=== PATIENT | female | born 1980 | race Caucasian/White ===

== ENCOUNTER 2016-05-08 19:11 | Inpatient (IN) | payer OTHER ==
[~2016-05-08] VITALS: Ht 162.6 cm; Wt 66.3 kg
[2016-05-08 20:30] VITALS: BP 115/48
[2016-05-08 21:00] VITALS: BP 113/72
[2016-05-08] MEDS ORDERED: BENZOCAINE/MENTHOL LOZENGE. PO PRN (21:15)
[2016-05-08] MEDS ORDERED: TEMAZEPAM 15 MG CAPSULE PO PRN (21:15)
[2016-05-08 21:30] VITALS: BP 112/56
[2016-05-08 22:00] VITALS: BP 105/87
[2016-05-08] MEDS ORDERED: POTASSIUM CHLORIDE 40 MEQ in IV NORMAL SALINE 1000ML BAG 1,000 ML IV SCH (22:00)
[2016-05-08] MEDS: GUAIFENESIN ER 600 MG TABLET.ER PO SCH (22:00)
[2016-05-08] MEDS: ACETAMINOPHEN 325 MG TABLET. PO PRN (22:06)
[2016-05-08] MEDS: OXYCODONE IR 5 MG TABLET. PO PRN (22:08)
[2016-05-08] MEDS ORDERED: CEFTRIAXONE SODIUM 1 GM in IV NORMAL SALINE 50ML 50 ML IV SCH (22:30)
[2016-05-08 23:00] VITALS: BP 117/55
[2016-05-08] MEDS ORDERED: AZITHROMYCIN 500 MG in IV NORMAL SALINE 250ML 250 ML IV SCH (23:00)
[2016-05-08] MEDS: IPRATRPIUM/ALBUTEROL 0.5/2.5MG 3 ML NEBU. NEB SCH ×2 (23:45→23:47)
[2016-05-09] VITALS (19 sets, daily range): BP systolic 96–121; BP diastolic 39–80
[2016-05-09] MEDS: ACETAMINOPHEN 325 MG TABLET. PO PRN ×2 (04:31→20:54)
[2016-05-09] MEDS ORDERED: IBUP-1027 PO (05:00)
[2016-05-09] MEDS: GUAIFENESIN ER 600 MG TABLET.ER PO SCH ×2 (05:54→20:54)
[2016-05-09] MEDS: KETOROLAC 15 MG/ML VIAL. IV PRN ×3 (05:55→16:13)
[2016-05-09 06:30] LABS: BASO % 0 % (0-3); EOS % 0 % (0-3); HEMOGLOBIN 11.4 g/dL (12.0-15.5); LYMPH # 1.2 x10^3/uL (1.0-4.8); LYMPH % 15 % (24-48); MEAN CORPUSCULAR HEMOGLOBIN 31 pg (25-35); MEAN CORPUSCULAR HGB CONC 35 g/dL (31-37); MEAN CORPUSCULAR VOLUME 89 fL (79-100); MONO % 9 % (0-9); NEUT % 76 % (31-73); PLATELET COUNT 174 x10^3/uL (140-400); RED BLOOD COUNT 3.69 x10^6/uL (3.50-5.40); RED CELL DISTRIBUTION WIDTH 13.1 % (11.5-14.5); WHITE BLOOD COUNT 8.1 x10^3/uL (4.0-11.0)
[2016-05-09 06:37] LABS: INR 1.3 (0.8-1.1); PROTHROMBIN TIME PATIENT 15.4 SEC (11.7-14.0)
[2016-05-09 06:38] LABS: CALCIUM 8.1 mg/dL (8.5-10.1); CREATININE 0.7 mg/dL (0.6-1.0); GFR 94.7
--- NOTE | 2016-05-09 07:02 | PDOC ---
Infectious Disease Note Vital Sign Vital Signs Vital Signs Date Time Temp Pulse Resp B/P Pulse Ox O2 Delivery O2 Flow Rate FiO2 05/09/16 04:00 100.3 75 24 97/53 97 100.3 05/09/16 04:00 Room Air Labs Lab Laboratory Tests Test 05/09/16 05:40 White Blood Count 8.1x10^3/uL (4.0-11.0) Red Blood Count 3.69x10^6/uL (3.50-5.40) Hemoglobin 11.4g/dL (12.0-15.5) Hematocrit 33.0% (36.0-47.0) Mean Corpuscular Volume 89fL (79-100) Mean Corpuscular Hemoglobin 31pg (25-35) Mean Corpuscular Hemoglobin Concent 35g/dL (31-37) Red Cell Distribution Width 13.1% (11.5-14.5) Platelet Count 174x10^3/uL (140-400) Neutrophils (%) (Auto) 76% (31-73) Lymphocytes (%) (Auto) 15% (24-48) Monocytes (%) (Auto) 9% (0-9) Eosinophils (%) (Auto) 0% (0-3) Basophils (%) (Auto) 0% (0-3) Neutrophils # (Auto) 6.1x10^3uL (1.8-7.7) Lymphocytes # (Auto) 1.2x10^3/uL (1.0-4.8) Monocytes # (Auto) 0.7x10^3/uL (0.0-1.1) Eosinophils # (Auto) 0.0x10^3/uL (0.0-0.7) Basophils # (Auto) 0.0x10^3/uL (0.0-0.2) Prothrombin Time 15.4SEC (11.7-14.0) Prothromb Time International Ratio 1.3 (0.8-1.1) Activated Partial Thromboplast Time 39SEC (24-38) Sodium Level 136mmol/L (136-145) Potassium Level 4.0mmol/L (3.5-5.1) Chloride Level 103mmol/L (98-107) Carbon Dioxide Level 23mmol/L (21-32) Anion Gap 10 (6-14) Blood Urea Nitrogen 4mg/dL (7-20) Creatinine 0.7mg/dL (0.6-1.0) Estimated GFR (Cockcroft-Gault) 94.7 Glucose Level 87mg/dL (70-99) Calcium Level 8.1mg/dL (8.5-10.1) Objective Assessment Pneumonia with parapneumonic effusion Fever CAP Plan Plan of Care Rocephin and azithro thoracentesis supportive care check cultures CARLOS NASH MD May 09, 2016 07:02
--- NOTE | 2016-05-09 07:57 | RAD ---
EXAM: Chest, single view. HISTORY: Pneumonia. COMPARISON: None. FINDINGS: A frontal view of the chest is obtained. There is a small to moderate right pleural effusion with lower lobe infiltrate. There is no pneumothorax. The heart is normal in size. There is thoracolumbar fusion dislocation. IMPRESSION: Small to moderate right pleural effusion with lower lobe atelectasis.
[2016-05-09] MEDS: IPRATRPIUM/ALBUTEROL 0.5/2.5MG 3 ML NEBU. NEB SCH ×3 (09:42→20:31)
[2016-05-09] MEDS ORDERED: INFLUENZA VAX SCREEN BY RX. MC PRN (10:15)
[2016-05-09] MEDS ORDERED: FLU VACC QUAD 2016-17 (36MOS+)/PF 0.5 ML SYRINGE. VAX IM ONE (11:00)
--- NOTE | 2016-05-09 11:08 | PDOC ---
Provider Note Provider Note dictated SILVIA DOBBINS MD May 09, 2016 11:08
--- NOTE | 2016-05-09 11:38 | RAD ---
EXAM: Abdomen and pelvis CT without intravenous contrast. HISTORY: Empyema. TECHNIQUE: Computed tomographic images of the chest were obtained without contrast. Multiplanar reformatting was performed. COMPARISON: None. FINDINGS: There is consolidated infiltrate within the right lower lobe containing air bronchograms. There is a small right parapneumonic effusion. There is a small left pleural effusion with posterior dependent and basilar atelectasis. There is no pneumothorax. The heart is normal in size. There are prominent right hilar lymph nodes, likely reactive in etiology. The upper abdomen is unremarkable. There is thoracolumbar fusion instrumentation. IMPRESSION: 1. Consolidated right lower lobe pneumonia with small parapneumonic effusion. Follow-up to confirm resolution and exclude an underlying obstructing lesion. 2. Small left pleural effusion with posterior dependent and basilar atelectasis. PQRS Compliance Statement: One or more of the following individualized dose reduction techniques were utilized for this examination: 1. Automated exposure control 2. Adjustment of the mA and/or kV according to patient size 3. Use of iterative reconstruction technique
[2016-05-09] MEDS: IV NORMAL SALINE 1000ML BAG 1,000 ML IV SCH ×3 (12:54→20:20)
[2016-05-09] MEDS ORDERED: PIP/TAZO PER PHARMACY MC PRN (13:15)
[2016-05-09] MEDS ORDERED: ALBUTEROL SULFATE 2.5 MG/3 ML NEBU. ONE (13:26)
[2016-05-09] MEDS ORDERED: PROPOFOL 40 ML IV ONE (13:50)
[2016-05-09] MEDS: PIPERACILLIN/TAZOBACTAM 4.5 GM in IV NORMAL SALINE 100ML 100 ML IV SCH ×2 (14:57→17:51)
--- NOTE | 2016-05-09 14:59 | HP ---
ADMIT DATE: 05/08/2016 HISTORY OF PRESENT ILLNESS: The patient is a 35-year-old female patient who was admitted to [facility] with complaint of cough with scanty whitish sputum and right-sided chest pain, worse with coughing and taking a deep breath. She was extensively evaluated in the Emergency Room. She has no leukocytosis; however, she was hypokalemic and her influenza A and B were negative. Rapid group A streptococcus test was negative. Her chest x-ray showed that she has right lower lobe pneumonia and apparently had abdominal pain, mostly in the right upper quadrant with nausea, vomiting and therefore, she had a CT scan of the abdomen and pelvis and was found to have right lower lobe consolidation, likely pneumonia and was admitted and started on IV antibiotic in the form of ceftriaxone and Zithromax for community-acquired pneumonia. Unfortunately, she continued to spike temperature despite treatment and yesterday I did a chest x-ray, which showed that she large right-sided pleural effusion, which could be a parapneumonic effusion versus empyema and because she continued to have persistent fever, I transferred her to the ICU with plan to consult the piercing mill operator, Infectious Disease and possibly interventional radiologist to drain this fluid. PAST MEDICAL HISTORY: Unremarkable except for scoliosis and acute cholecystitis. PAST SURGICAL HISTORY: Significant for cholecystectomy and had recent Patel Luis for scoliosis. ALLERGIES: She is allergic to codeine, and tramadol. MEDICATIONS: She was transferred from [facility] to continue on following medications: Normal saline at 150 mL per hour, Tylenol 650 mg every 4 hours. She is on Zithromax 500 mg IV daily and ceftriaxone 1 gram IV daily. She is on Mucinex 600 mg p.o. b.i.d., ipratropium bromide/albuterol sulfate 3 mL four times a day. She is also on Toradol 15 mg IV every 6 hours, oxycodone 5 mg every 4 hours and temazepam 15 mg at bedtime. FAMILY HISTORY: She has one brother who is younger and one sister older. Her father committed suicide at the age of 63. The mother is alive at age of 65 and healthy. SOCIAL HISTORY: She is , has 1 son and 1 daughter. She never smoked. Drinks alcohol occasionally. 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 REVIEW OF SYSTEMS: As per history of present illness. PHYSICAL EXAMINATION: GENERAL: On arrival to the ICU, in [facility], the patient was slightly tachypneic, pale, but no jaundice, cyanosis or thyromegaly. No jugular venous distention. No limb edema. VITAL SIGNS: Her heart rate was 71, blood pressure was 115/48, temperature was 99.4, respiratory rate was 25, and oxygen saturation was 99% on room air. HEAD, EYES, NOSE AND THROAT: Showed normocephalic, atraumatic. NECK: Supple. HEART: Showed normal first and second heart sounds with no gallop, rub or murmur. CHEST: Shows central trachea, equal, good chest expansion, air entry in the left side. The right has decreased chest expansion, decreased air entry with dull percussion noted and absent breath sounds in the right side posteriorly. ABDOMEN: Slightly distended, soft, nontender. No guarding or rigidity. No organomegaly. Her hernial orifice intact. Bowel sounds normal. NEUROLOGIC: She was awake, alert, responding appropriately. Cranial nerves intact. EXTREMITIES: She moves extremities without difficulty. She ambulates without assistance or assistive devices. LABORATORY DATA: Showed white cell count of 8000, hemoglobin 11.4, hematocrit 33, MCV 89 and platelet count of ,000 with normal manual differential. Her chemistry showed serum sodium of 136, potassium 4, chloride 103, bicarbonate 23, anion gap of 10, BUN 4, creatinine 0.7, estimated GFR was 95 mL per minute. Her glucose was 87 and calcium was 8.1. Her prothrombin time was 15.4, INR 1.3 and aPTT was 39. PLAN: Consult the piercing mill operator, infectious disease specialist, Dr. Mccollum to see this parapneumonic versus empyema fluid needs to be drained. Meanwhile, we will continue with the same antibiotics unless the Infectious Disease decides otherwise. AUGUST TONY MD DR: YOVANI/mary JOB#: [id number] / [id number]
--- NOTE | 2016-05-09 15:47 | PDOC4 ---
PROCEDURE Procedure Bronch dictated SILVIA DOBBINS MD May 09, 2016 15:47
--- NOTE | 2016-05-09 15:50 | CONS ---
DATE OF CONSULTATION: 05/09/2016 REQUESTING PHYSICIAN: Dr. Kulkarni. REASON FOR CONSULTATION: Pneumonia with effusion, possible empyema. HISTORY OF PRESENT ILLNESS: This is a 35-year-old female with history of gallbladder surgery in December, who presented to [place] with cough, fever, some shortness of breath. The patient was found to have right lower lobe pneumonia and subsequently found to have effusion, hence her transfer. The patient continues to run fever, she says. Denies any nausea, vomiting, diarrhea. Denies any abdominal pain. Does have some chest pain, denies any urinary symptoms or bowel symptoms. PAST MEDICAL HISTORY: Positive for cholecystectomy in December, otherwise unremarkable. SOCIAL HISTORY: Negative for smoking, occasional alcohol use, no drug use. ALLERGIES: No known drug allergies. No known antibiotic allergies. CURRENT MEDICATIONS: The patient is on Rocephin and azithromycin. REVIEW OF SYSTEMS: As per HPI, all other systems reviewed are negative. PHYSICAL EXAMINATION: GENERAL: Alert, oriented female, not in any distress. VITAL SIGNS: Stable. T-max 100.3. The patient had 102 fever at [place]. Pulse 75, respirations 24, blood pressure 97/53. HEENT: Both pupils are round and reacting. No conjunctival lesion, no lesion in the mouth. NECK: Supple, no JVP, no lymphadenopathy. LUNGS: Decreased breath sounds on the right side. HEART: S1, S2 regular. No gallop, murmur. ABDOMEN: Soft, nontender, no organomegaly. EXTREMITIES: No edema or cyanosis. SKIN: Unremarkable. NEUROLOGIC: The patient is neurologically intact. LABORATORY DATA: White count is normal. BUN and creatinine are normal. Strep pneumo antigen there at [place] was negative. Chest x-ray personally reviewed, right-sided consolidation with effusion. IMPRESSION: 1. Community-acquired pneumonia with right parapneumonic effusion, rule out empyema. 2. Community-acquired pneumonia. 3. Fever. RECOMMENDATIONS: Would continue with Rocephin and azithromycin. Thoracentesis has been planned for today. Supportive care. We will check cultures and adjust. Thank you very much, Dr. Kulkarni for giving me the opportunity to participate in this patient's care. CARLOS NASH MD DR: HOLLY/mary JOB#: [id number] / [id number]
[2016-05-09] MEDS: OXYCODONE IR 5 MG TABLET. PO PRN (20:54)
--- NOTE | 2016-05-09 23:54 | CONS ---
DATE OF CONSULTATION: ATTENDING PHYSICIAN: Dr. Kulkarni. REASON FOR CONSULTATION: Suspected empyema. HISTORY OF PRESENT ILLNESS: The patient is a 35-year-old who has no significant history of tobacco use. She presented to [facility] with fever. This was started on May 05. The patient was treated for pneumonia as her initial chest x-ray showed consolidation in the right lower lobe. She continues to have fever. She then underwent CT of the abdomen and pelvis which was performed at [facility] and that was reviewed by me on 05/06/2016. There was a mass-like consolidation in the right lower lobe closer to the pleura. There was no significant pleural effusion. The patient's fevers did not improve. As a result, another chest x-ray was performed, which was reviewed by me and it shows increased volume loss in the right lower lobe consistent with suspected parapneumonic effusion versus early empyema. She has been transferred to our facility in the ICU for further evaluation. She does have some shortness of breath. She has some pleuritic chest pain on the right side. She does have a mild cough. The patient has no history of immunocompromised status. She is not on chronic steroids. Infectious disease has also been consulted. She is currently on antibiotics, Rocephin and Zithromax. PAST MEDICAL HISTORY: Significant for history of scoliosis. She has history of surgery and hardware in her spine. History of cholecystectomy in December. History of CT chest in November where she has small right lower lobe pleural effusion. PAST SURGICAL HISTORY: Cholecystectomy in December and history of surgery for scoliosis. REVIEW OF SYSTEMS: A 12-point system was obtained. Pertinent positives discussed in my history of present illness, otherwise noncontributory. All systems that were negative were reviewed as well. ALLERGIES: CODEINE, TRAMADOL. MEDICATIONS: Reviewed. PHYSICAL EXAMINATION: GENERAL: She is awake, in no obvious respiratory distress. VITAL SIGNS: Her T-max of 99.1, today was 100.3 earlier in a.m. Blood pressure is stable. Pulse ox 98% on room air. NECK: Supple. LUNGS: Diminished breath sounds in right base. CARDIOVASCULAR: Regular rate and rhythm. ABDOMEN: Soft, nontender. EXTREMITIES: No pitting edema. LABORATORY DATA: Reviewed. White cell count 8.1, hemoglobin 11.4, and platelets are 174. BUN 4 and creatinine 0.7. IMPRESSION: 1. Community acquired right lower lobe pneumonia, now with parapneumonic effusion. Cannot exclude early empyema. She has persistent fevers and infectious disease has been consulted. 2. Abnormal chest x-ray and CT of the abdomen. Initially, consolidation was seen on CT abdomen on 06 of May, now on a plain chest x-ray. She has more volume loss suggesting that the pleural effusion has developed. We will order another CT chest to better assess for loculated pleural effusion and need for thoracentesis and chest tube. 3. No significant history of tobacco use. RECOMMENDATIONS: 1. Discussed with the patient and the . We will obtain CT of the chest without contrast. 2. Once there is a better assessment of loculated effusion, we will proceed with thoracentesis or chest tube with Pleur-evac. 3. We will review fluid for analysis. 4. Antibiotics per infectious disease. 5. Supportive care. 6. Pain control. 7. DuoNeb p.r.n. 8. Discussed with Dr. Kulkarni. cct 37 min SILVIA DOBBINS MD DR: NOEMÍ/mary JOB#: [id number] / [id number] KYRIE
[2016-05-10] MEDS: PIPERACILLIN/TAZOBACTAM 4.5 GM in IV NORMAL SALINE 100ML 100 ML IV SCH ×5 (00:02→23:37)
[2016-05-10 03:00] VITALS: BP 105/58
[2016-05-10] MEDS: IV NORMAL SALINE 1000ML BAG 1,000 ML IV SCH ×2 (03:00→09:40)
[2016-05-10] MEDS: KETOROLAC 15 MG/ML VIAL. IV PRN (04:18)
[2016-05-10 05:16] LABS: BASO % 0 % (0-3); EOS % 1 % (0-3); HEMATOCRIT 31.2 % (36.0-47.0); HEMOGLOBIN 10.5 g/dL (12.0-15.5); LYMPH # 1.1 x10^3/uL (1.0-4.8); LYMPH % 20 % (24-48); MEAN CORPUSCULAR HEMOGLOBIN 30 pg (25-35); MEAN CORPUSCULAR HGB CONC 34 g/dL (31-37); MEAN CORPUSCULAR VOLUME 91 fL (79-100); MONO % 10 % (0-9); NEUT % 68 % (31-73); PLATELET COUNT 168 x10^3/uL (140-400); RED BLOOD COUNT 3.44 x10^6/uL (3.50-5.40); WHITE BLOOD COUNT 5.6 x10^3/uL (4.0-11.0)
[2016-05-10 05:47] LABS: ALBUMIN 2.2 g/dL (3.4-5.0); ALBUMIN/GLOBULIN RATIO 0.6 (1.0-1.7); CALCIUM 7.8 mg/dL (8.5-10.1); CREATININE 0.7 mg/dL (0.6-1.0); GFR 94.7; POTASSIUM 3.5 mmol/L (3.5-5.1); TOTAL BILIRUBIN 0.3 mg/dL (0.2-1.0); TOTAL PROTEIN 5.9 g/dL (6.4-8.2)
[2016-05-10 07:00] VITALS: BP 107/60
[2016-05-10] MEDS: IPRATRPIUM/ALBUTEROL 0.5/2.5MG 3 ML NEBU. NEB SCH ×4 (07:56→19:42)
[2016-05-10] MEDS: GUAIFENESIN ER 600 MG TABLET.ER PO SCH ×2 (08:28→20:34)
--- NOTE | 2016-05-10 10:18 | PDOC ---
Infectious Disease Note Subjective Subjective feeling little better, bronch done ROS ROS GEN: Denies fevers, chills, sweats HEENT: Denies blurred vision, sore throat CV: Denies chest pain RESP: Denies shortness of air, cough GI: Denies n/v/d NEURO: Denies confusion, dizziness MSK: Denies weakness, joint pain/swelling Vital Sign Vital Signs Vital Signs Date Time Temp Pulse Resp B/P Pulse Ox O2 Delivery O2 Flow Rate FiO2 05/10/16 07:58 93 Room Air 05/10/16 07:00 98.4 56 20 107/60 98.4 05/09/16 21:54 5.0 Physical Exam PHYSICAL EXAM GENERAL: NAD, Alert HEENT: PERRL, OC/OP NECK: Supple, no JVD, no LN LUNGS: Clear HEART: S1S2, no gallop, no murmur ABD: Soft, NT, no organomegaly, no rebound EXT: No edema, no cyanosis PARENTING SKILLS INSTRUCTOR: Alert, oriented x 3, no focal neurologic deficit SKIN: No rash IV: ok Labs Lab Laboratory Tests Test 05/10/16 04:45 White Blood Count 5.6x10^3/uL (4.0-11.0) Red Blood Count 3.44x10^6/uL (3.50-5.40) Hemoglobin 10.5g/dL (12.0-15.5) Hematocrit 31.2% (36.0-47.0) Mean Corpuscular Volume 91fL (79-100) Mean Corpuscular Hemoglobin 30pg (25-35) Mean Corpuscular Hemoglobin Concent 34g/dL (31-37) Red Cell Distribution Width 13.0% (11.5-14.5) Platelet Count 168x10^3/uL (140-400) Neutrophils (%) (Auto) 68% (31-73) Lymphocytes (%) (Auto) 20% (24-48) Monocytes (%) (Auto) 10% (0-9) Eosinophils (%) (Auto) 1% (0-3) Basophils (%) (Auto) 0% (0-3) Neutrophils # (Auto) 3.8x10^3uL (1.8-7.7) Lymphocytes # (Auto) 1.1x10^3/uL (1.0-4.8) Monocytes # (Auto) 0.6x10^3/uL (0.0-1.1) Eosinophils # (Auto) 0.0x10^3/uL (0.0-0.7) Basophils # (Auto) 0.0x10^3/uL (0.0-0.2) Sodium Level 137mmol/L (136-145) Potassium Level 3.5mmol/L (3.5-5.1) Chloride Level 104mmol/L (98-107) Carbon Dioxide Level 24mmol/L (21-32) Anion Gap 9 (6-14) Blood Urea Nitrogen 3mg/dL (7-20) Creatinine 0.7mg/dL (0.6-1.0) Estimated GFR (Cockcroft-Gault) 94.7 BUN/Creatinine Ratio 4 (6-20) Glucose Level 97mg/dL (70-99) Calcium Level 7.8mg/dL (8.5-10.1) Total Bilirubin 0.3mg/dL (0.2-1.0) Aspartate Amino Transf (AST/SGOT) 17U/L (15-37) Alanine Aminotransferase (ALT/SGPT) 26U/L (14-59) Alkaline Phosphatase 34U/L (46-116) Total Protein 5.9g/dL (6.4-8.2) Albumin 2.2g/dL (3.4-5.0) Albumin/Globulin Ratio 0.6 (1.0-1.7) Objective Assessment Pneumonia Fever CAP Plan Plan of Care zosyn and zyvox supportive care check cultures CARLOS NASH MD May 10, 2016 10:18
[2016-05-10] MEDS ORDERED: ONDANSETRON PF 4 MG/2 ML VIAL. IV PRN (11:15)
[2016-05-10 11:38] VITALS: BP 101/61
[2016-05-10] MEDS: POTASSIUM CHLORIDE 20 MEQ TABLET.ER. PO SCH ×2 (11:53→17:00)
--- NOTE | 2016-05-10 14:26 | PDOC ---
PULMONARY PROGRESS NOTES Subjective FEELS BETTER Vitals Vital Signs Date Time Temp Pulse Resp B/P Pulse Ox O2 Delivery O2 Flow Rate FiO2 05/10/16 12:10 Room Air 05/10/16 11:38 98.1 70 18 101/61 92 98.1 05/09/16 21:54 5.0 General: Alert, No acute distress Lungs: Other (decrease bs right base) Cardiovascular: S1 Abdomen: Soft Neuro Exam: Alert Extremities: No Edema Skin: Warm Labs Laboratory Tests Test 05/08/16 21:30 05/09/16 05:40 05/10/16 04:45 Nasal Screen MRSA (PCR) Negative (Negative) White Blood Count 8.1x10^3/uL (4.0-11.0) 5.6x10^3/uL (4.0-11.0) Red Blood Count 3.69x10^6/uL (3.50-5.40) 3.44x10^6/uL (3.50-5.40) Hemoglobin 11.4g/dL (12.0-15.5) 10.5g/dL (12.0-15.5) Hematocrit 33.0% (36.0-47.0) 31.2% (36.0-47.0) Mean Corpuscular Volume 89fL (79-100) 91fL (79-100) Mean Corpuscular Hemoglobin 31pg (25-35) 30pg (25-35) Mean Corpuscular Hemoglobin Concent 35g/dL (31-37) 34g/dL (31-37) Red Cell Distribution Width 13.1% (11.5-14.5) 13.0% (11.5-14.5) Platelet Count 174x10^3/uL (140-400) 168x10^3/uL (140-400) Neutrophils (%) (Auto) 76% (31-73) 68% (31-73) Lymphocytes (%) (Auto) 15% (24-48) 20% (24-48) Monocytes (%) (Auto) 9% (0-9) 10% (0-9) Eosinophils (%) (Auto) 0% (0-3) 1% (0-3) Basophils (%) (Auto) 0% (0-3) 0% (0-3) Neutrophils # (Auto) 6.1x10^3uL (1.8-7.7) 3.8x10^3uL (1.8-7.7) Lymphocytes # (Auto) 1.2x10^3/uL (1.0-4.8) 1.1x10^3/uL (1.0-4.8) Monocytes # (Auto) 0.7x10^3/uL (0.0-1.1) 0.6x10^3/uL (0.0-1.1) Eosinophils # (Auto) 0.0x10^3/uL (0.0-0.7) 0.0x10^3/uL (0.0-0.7) Basophils # (Auto) 0.0x10^3/uL (0.0-0.2) 0.0x10^3/uL (0.0-0.2) Prothrombin Time 15.4SEC (11.7-14.0) Prothromb Time International Ratio 1.3 (0.8-1.1) Activated Partial Thromboplast Time 39SEC (24-38) Sodium Level 136mmol/L (136-145) 137mmol/L (136-145) Potassium Level 4.0mmol/L (3.5-5.1) 3.5mmol/L (3.5-5.1) Chloride Level 103mmol/L (98-107) 104mmol/L (98-107) Carbon Dioxide Level 23mmol/L (21-32) 24mmol/L (21-32) Anion Gap 10 (6-14) 9 (6-14) Blood Urea Nitrogen 4mg/dL (7-20) 3mg/dL (7-20) Creatinine 0.7mg/dL (0.6-1.0) 0.7mg/dL (0.6-1.0) Estimated GFR (Cockcroft-Gault) 94.7 94.7 Glucose Level 87mg/dL (70-99) 97mg/dL (70-99) Calcium Level 8.1mg/dL (8.5-10.1) 7.8mg/dL (8.5-10.1) BUN/Creatinine Ratio 4 (6-20) Total Bilirubin 0.3mg/dL (0.2-1.0) Aspartate Amino Transf (AST/SGOT) 17U/L (15-37) Alanine Aminotransferase (ALT/SGPT) 26U/L (14-59) Alkaline Phosphatase 34U/L (46-116) Total Protein 5.9g/dL (6.4-8.2) Albumin 2.2g/dL (3.4-5.0) Albumin/Globulin Ratio 0.6 (1.0-1.7) Laboratory Tests Test 05/10/16 04:45 White Blood Count 5.6x10^3/uL (4.0-11.0) Red Blood Count 3.44x10^6/uL (3.50-5.40) Hemoglobin 10.5g/dL (12.0-15.5) Hematocrit 31.2% (36.0-47.0) Mean Corpuscular Volume 91fL (79-100) Mean Corpuscular Hemoglobin 30pg (25-35) Mean Corpuscular Hemoglobin Concent 34g/dL (31-37) Red Cell Distribution Width 13.0% (11.5-14.5) Platelet Count 168x10^3/uL (140-400) Neutrophils (%) (Auto) 68% (31-73) Lymphocytes (%) (Auto) 20% (24-48) Monocytes (%) (Auto) 10% (0-9) Eosinophils (%) (Auto) 1% (0-3) Basophils (%) (Auto) 0% (0-3) Neutrophils # (Auto) 3.8x10^3uL (1.8-7.7) Lymphocytes # (Auto) 1.1x10^3/uL (1.0-4.8) Monocytes # (Auto) 0.6x10^3/uL (0.0-1.1) Eosinophils # (Auto) 0.0x10^3/uL (0.0-0.7) Basophils # (Auto) 0.0x10^3/uL (0.0-0.2) Sodium Level 137mmol/L (136-145) Potassium Level 3.5mmol/L (3.5-5.1) Chloride Level 104mmol/L (98-107) Carbon Dioxide Level 24mmol/L (21-32) Anion Gap 9 (6-14) Blood Urea Nitrogen 3mg/dL (7-20) Creatinine 0.7mg/dL (0.6-1.0) Estimated GFR (Cockcroft-Gault) 94.7 BUN/Creatinine Ratio 4 (6-20) Glucose Level 97mg/dL (70-99) Calcium Level 7.8mg/dL (8.5-10.1) Total Bilirubin 0.3mg/dL (0.2-1.0) Aspartate Amino Transf (AST/SGOT) 17U/L (15-37) Alanine Aminotransferase (ALT/SGPT) 26U/L (14-59) Alkaline Phosphatase 34U/L (46-116) Total Protein 5.9g/dL (6.4-8.2) Albumin 2.2g/dL (3.4-5.0) Albumin/Globulin Ratio 0.6 (1.0-1.7) Medications Active Scripts Medications Dose Route/Sig Days Date Category Ibuprofen 400 Mg Tablet 400 Mg PO PRN Q6HRS PRN 05/09/16 Reported Impression . 1. Community acquired right lower lobe pneumonia, 2. No significant empyema on ct chest 2. Abnormal chest x-ray and CT of the abdomen. Initially, consolidation was seen on CT abdomen on 06 of May, ct chest 05/09 with large consolidation , very tiny pleural effusion. No need for thoracentesis and chest tube. 3. No significant history of tobacco use. 4. S/P Bronch 05/09 Plan . 1. BS antibiotic 2. f/u Bronch cultures 3. monitor fever 4. Antibiotics per infectious disease. 5. Supportive care. 6. Pain control. 7. DuoNeb p.r.n. 8. Discussed with Dr. Kulkarni. SILVIA DOBBINS MD May 10, 2016 14:25
[2016-05-10 15:15] VITALS: BP 97/56
[2016-05-10] MEDS: ACETAMINOPHEN 325 MG TABLET. PO PRN (17:10)
--- NOTE | 2016-05-10 17:30 | PATHOLOGY ---
CYTOPATHOLOGY REPORT CLINICAL HISTORY: Pneumonia. SPECIMEN(S) RECEIVED: A.Bronchoalveolar lavage, RLL #1 B.Bronchoalveolar lavage, RLL #2 FINAL DIAGNOSIS: A. Right lower lobe, bronchoalveolar lavage #1, ThinPrep: - No malignant cells identified. - Focally reactive bronchial epithelial cells and few pulmonary macrophages are identified within a background of acute and chronic inflammatory cells. B. Right lower lobe bronchoalveolar lavage #2, ThinPrep: - No malignant cells identified. - Focally reactive bronchial epithelial cells and few pulmonary macrophages are identified within a background of acute and few chronic inflammatory cells. (JPM:csd; d/t: 05/10/2016) PATHOLOGIST: Wili Cross M.D. REPORT ELECTRONICALLY SIGNED BY: Wili Cross M.D. DATE/TIME: 05/10/2016 16:39 GROSS PATHOLOGY: A. Bronchoalveolar lavage, RLL #1: The specimen is submitted unfixed, labeled "Ila Nicole". Received by the Cytology Department is five mL of cloudy white fluid. One ThinPrep slide was prepared. B. Bronchoalveolar lavage, RLL #2: The specimen is submitted unfixed, labeled "Ila Nicole". Received by the Cytology Department is five mL of cloudy pink fluid. One ThinPrep slide was prepared. (clt 05.09.2016) SLATE SPLITTER(S): CHANCE Patel([facility]) INITIAL CPT CODE(S): A; 80562 B; 38015 Professional services [place] [address] Technical services performed by [employer] at [address] [place] [address], [facility] [address], [place] [address]. PATIENT: ILA NICOLE /AGE: 812/18/1980 (Age: 35) SEX: F PATIENT #: [id number] ALT CASE #: SPECIMEN COLLECTION DATE: 05/09/2016 SPECIMEN RECEIVED DATE: 05/09/[address] [facility], [address] [place] [address] PHONE: [phone] DIRECTOR: Angus Gilliam M.D. * * * END OF REPORT * * *
[2016-05-10 19:00] VITALS: BP 94/59
[2016-05-10 23:00] VITALS: BP 97/67
--- NOTE | 2016-05-11 02:52 | PN ---
DATE: 05/10/2016 SUBJECTIVE: The patient is resting, slightly propped up in bed, in no apparent distress. She is definitely feeling better according to her, though she did have some nausea this morning. She has had a CT scan of the chest without contrast and it showed that she has consolidated right lower lobe pneumonia with small parapneumonic effusion, small left pleural effusion ____. Given that she has small pleural effusion, Dr. Mata did bronchoscopy and apparently send ____ for culture, the result of which is still pending. His antibiotics were switched to Zyvox and Zosyn. OBJECTIVE: GENERAL: When I saw her this morning, she looked well and was clearly in no apparent distress, slightly pale. No jaundice, cyanosis, or thyromegaly. No jugular venous distention. No limb edema. VITAL SIGNS: Her heart rate was 56, blood pressure was 107/60, temperature was 98.4, respiratory rate was 20, and oxygen saturation was 93% on room air. HEAD, EYES, NOSE AND THROAT: Normocephalic, atraumatic. NECK: Supple. HEART: Showed normal first and second heart sounds with no gallop, rub, or murmur. CHEST: Shows central trachea, equal bilateral chest expansion and air entry, vesicular sounds with dull percussion noted and bronchial breath sounds on the right side serially. ABDOMEN: Distended, soft, nontender. NEUROLOGIC: She is awake, alert, responding appropriately. Cranial nerves are intact. She moves extremities without difficulty. Her intake and output were incompletely recorded. LABORATORY DATA: Her lab work this morning showed a white cell count of 5600; hemoglobin 10.5; hematocrit 31; MCV 91; platelet count 268,000. Her chemistry showed a serum sodium of 137, potassium 3.5, chloride 104, bicarbonate 24, anion gap of 9, BUN 3, creatinine 0.7, estimated GFR was 95 mL per minute. Her glucose was 97. Calcium was 7.8. Total bilirubin, AST, ALT, alkaline phosphatase were normal. Total protein was 5.9, albumin 2.2. Her prothrombin time was normal. Nasal screen for MRSA by PCR was negative. PLAN: To discontinue IV fluids, start her on Zofran 4 mg IV every 4 hours. Repeat her labs tomorrow, consult Physical Therapy and decide further management according to the results of the culture and sensitivity. AUGUST TONY MD DR: Angeline JOB#: [id number] / [id number]
[2016-05-11 03:00] VITALS: BP 96/57
[2016-05-11] MEDS: ACETAMINOPHEN 325 MG TABLET. PO PRN ×2 (03:15→23:44)
[2016-05-11] MEDS: PIPERACILLIN/TAZOBACTAM 4.5 GM in IV NORMAL SALINE 100ML 100 ML IV SCH ×4 (05:38→22:25)
[2016-05-11 06:52] LABS: HEMATOCRIT 31.3 % (36.0-47.0); HEMOGLOBIN 10.6 g/dL (12.0-15.5); RED BLOOD COUNT 3.48 x10^6/uL (3.50-5.40); RED CELL DISTRIBUTION WIDTH 13.3 % (11.5-14.5); WHITE BLOOD COUNT 3.9 x10^3/uL (4.0-11.0)
[2016-05-11 07:05] LABS: CALCIUM 8.3 mg/dL (8.5-10.1); CREATININE 0.7 mg/dL (0.6-1.0); GFR 94.7; POTASSIUM 3.7 mmol/L (3.5-5.1)
[2016-05-11 07:15] VITALS: BP 122/78
[2016-05-11] MEDS: IPRATRPIUM/ALBUTEROL 0.5/2.5MG 3 ML NEBU. NEB SCH ×4 (08:02→19:37)
[2016-05-11] MEDS: POTASSIUM CHLORIDE 20 MEQ TABLET.ER. PO SCH ×3 (08:03→17:28)
[2016-05-11] MEDS: GUAIFENESIN ER 600 MG TABLET.ER PO SCH ×2 (08:04→21:09)
[2016-05-11 11:37] VITALS: BP 92/52
--- NOTE | 2016-05-11 11:42 | PDOC ---
Infectious Disease Note Subjective Subjective feeling much better, ROS ROS GEN: Denies fevers, chills, sweats HEENT: Denies blurred vision, sore throat CV: Denies chest pain RESP: Denies shortness of air, cough GI: Denies n/v/d NEURO: Denies confusion, dizziness MSK: Denies weakness, joint pain/swelling Vital Sign Vital Signs Vital Signs Date Time Temp Pulse Resp B/P Pulse Ox O2 Delivery O2 Flow Rate FiO2 05/11/16 11:37 97.7 67 14 92/52 94 Room Air 97.7 Physical Exam PHYSICAL EXAM GENERAL: NAD, Alert HEENT: PERRL, OC/OP NECK: Supple, no JVD, no LN LUNGS: Clear HEART: S1S2, no gallop, no murmur ABD: Soft, NT, no organomegaly, no rebound EXT: No edema, no cyanosis PATTERN STORAGE CLERK: Alert, oriented x 3, no focal neurologic deficit SKIN: No rash IV: ok Labs Lab Laboratory Tests Test 05/11/16 06:20 White Blood Count 3.9x10^3/uL (4.0-11.0) Red Blood Count 3.48x10^6/uL (3.50-5.40) Hemoglobin 10.6g/dL (12.0-15.5) Hematocrit 31.3% (36.0-47.0) Mean Corpuscular Volume 90fL (79-100) Mean Corpuscular Hemoglobin 31pg (25-35) Mean Corpuscular Hemoglobin Concent 34g/dL (31-37) Red Cell Distribution Width 13.3% (11.5-14.5) Platelet Count 203x10^3/uL (140-400) Sodium Level 137mmol/L (136-145) Potassium Level 3.7mmol/L (3.5-5.1) Chloride Level 105mmol/L (98-107) Carbon Dioxide Level 24mmol/L (21-32) Anion Gap 8 (6-14) Blood Urea Nitrogen 3mg/dL (7-20) Creatinine 0.7mg/dL (0.6-1.0) Estimated GFR (Cockcroft-Gault) 94.7 Glucose Level 89mg/dL (70-99) Calcium Level 8.3mg/dL (8.5-10.1) Micro culture neg Objective Assessment Pneumonia Fever CAP Plan Plan of Care zosyn and zyvox supportive care check cultures CARLOS NASH MD May 11, 2016 11:42
--- NOTE | 2016-05-11 13:45 | PDOC ---
PULMONARY PROGRESS NOTES Subjective FEELS BETTER Still low grade fever Vitals Vital Signs Date Time Temp Pulse Resp B/P Pulse Ox O2 Delivery O2 Flow Rate FiO2 05/11/16 11:55 Room Air 05/11/16 11:37 97.7 67 14 92/52 94 97.7 General: Alert, No acute distress Lungs: Other (decrease bs right base) Cardiovascular: S1 Abdomen: Soft Neuro Exam: Alert Extremities: No Edema Skin: Warm Labs Laboratory Tests Test 05/10/16 04:45 05/11/16 06:20 White Blood Count 5.6x10^3/uL (4.0-11.0) 3.9x10^3/uL (4.0-11.0) Red Blood Count 3.44x10^6/uL (3.50-5.40) 3.48x10^6/uL (3.50-5.40) Hemoglobin 10.5g/dL (12.0-15.5) 10.6g/dL (12.0-15.5) Hematocrit 31.2% (36.0-47.0) 31.3% (36.0-47.0) Mean Corpuscular Volume 91fL (79-100) 90fL (79-100) Mean Corpuscular Hemoglobin 30pg (25-35) 31pg (25-35) Mean Corpuscular Hemoglobin Concent 34g/dL (31-37) 34g/dL (31-37) Red Cell Distribution Width 13.0% (11.5-14.5) 13.3% (11.5-14.5) Platelet Count 168x10^3/uL (140-400) 203x10^3/uL (140-400) Neutrophils (%) (Auto) 68% (31-73) Lymphocytes (%) (Auto) 20% (24-48) Monocytes (%) (Auto) 10% (0-9) Eosinophils (%) (Auto) 1% (0-3) Basophils (%) (Auto) 0% (0-3) Neutrophils # (Auto) 3.8x10^3uL (1.8-7.7) Lymphocytes # (Auto) 1.1x10^3/uL (1.0-4.8) Monocytes # (Auto) 0.6x10^3/uL (0.0-1.1) Eosinophils # (Auto) 0.0x10^3/uL (0.0-0.7) Basophils # (Auto) 0.0x10^3/uL (0.0-0.2) Sodium Level 137mmol/L (136-145) 137mmol/L (136-145) Potassium Level 3.5mmol/L (3.5-5.1) 3.7mmol/L (3.5-5.1) Chloride Level 104mmol/L (98-107) 105mmol/L (98-107) Carbon Dioxide Level 24mmol/L (21-32) 24mmol/L (21-32) Anion Gap 9 (6-14) 8 (6-14) Blood Urea Nitrogen 3mg/dL (7-20) 3mg/dL (7-20) Creatinine 0.7mg/dL (0.6-1.0) 0.7mg/dL (0.6-1.0) Estimated GFR (Cockcroft-Gault) 94.7 94.7 BUN/Creatinine Ratio 4 (6-20) Glucose Level 97mg/dL (70-99) 89mg/dL (70-99) Calcium Level 7.8mg/dL (8.5-10.1) 8.3mg/dL (8.5-10.1) Total Bilirubin 0.3mg/dL (0.2-1.0) Aspartate Amino Transf (AST/SGOT) 17U/L (15-37) Alanine Aminotransferase (ALT/SGPT) 26U/L (14-59) Alkaline Phosphatase 34U/L (46-116) Total Protein 5.9g/dL (6.4-8.2) Albumin 2.2g/dL (3.4-5.0) Albumin/Globulin Ratio 0.6 (1.0-1.7) Laboratory Tests Test 05/11/16 06:20 White Blood Count 3.9x10^3/uL (4.0-11.0) Red Blood Count 3.48x10^6/uL (3.50-5.40) Hemoglobin 10.6g/dL (12.0-15.5) Hematocrit 31.3% (36.0-47.0) Mean Corpuscular Volume 90fL (79-100) Mean Corpuscular Hemoglobin 31pg (25-35) Mean Corpuscular Hemoglobin Concent 34g/dL (31-37) Red Cell Distribution Width 13.3% (11.5-14.5) Platelet Count 203x10^3/uL (140-400) Sodium Level 137mmol/L (136-145) Potassium Level 3.7mmol/L (3.5-5.1) Chloride Level 105mmol/L (98-107) Carbon Dioxide Level 24mmol/L (21-32) Anion Gap 8 (6-14) Blood Urea Nitrogen 3mg/dL (7-20) Creatinine 0.7mg/dL (0.6-1.0) Estimated GFR (Cockcroft-Gault) 94.7 Glucose Level 89mg/dL (70-99) Calcium Level 8.3mg/dL (8.5-10.1) Medications Active Scripts Medications Dose Route/Sig Days Date Category Ibuprofen 400 Mg Tablet 400 Mg PO PRN Q6HRS PRN 05/09/16 Reported Impression . 1. Community acquired right lower lobe pneumonia, 2. No significant empyema on ct chest 2. Abnormal chest x-ray and CT of the abdomen. Initially, consolidation was seen on CT abdomen on 06 of May, ct chest 05/09 with large consolidation , very tiny pleural effusion. 3. No significant history of tobacco use. 4. S/P Bronch 05/09 Plan . 1. BS antibiotic 2. f/u Bronch cultures 3. still with low grade fever/ ? BOOP related to pneumonia, will initiate steroids 4. Antibiotics per infectious disease. 5. Supportive care. 6. Pain control. 7. DuJennifer p.r.n. 8. Discussed with SILVIA DOBBINS MD May 11, 2016 13:45
[2016-05-11] MEDS: methylPREDNISolone SOD SUCC PF 40 MG/ML VIAL. IV SCH ×2 (14:57→21:10)
[2016-05-11] MEDS ORDERED: DIPHENHYDRAMINE HCL 25 MG CAPSULE PO PRN ×2 (15:15)
[2016-05-11 15:35] VITALS: BP 116/74
[2016-05-11 19:00] VITALS: BP 127/65
[2016-05-11 23:00] VITALS: BP 108/73
--- NOTE | 2016-05-11 23:40 | PN ---
DATE: 05/11/2016 SUBJECTIVE: The patient is resting, slightly propped up in bed, in no apparent respiratory distress. She said that she did spike a temperature last night up to 100.6 Fahrenheit, continued to have cough with some pinkish sputum. No chest pain. She has been up and about, walking without difficulty. OBJECTIVE: GENERAL: When I examined her, she looked pale, but no jaundice, cyanosis, or thyromegaly. No jugular venous distention. No limb edema. VITAL SIGNS: Her heart rate was 67, blood pressure was 92/52, temperature was 97.7, respiratory rate was 14, and oxygen saturation was 94% on room air. HEAD, EYES, EARS, NOSE, AND THROAT: Showed normocephalic, atraumatic. NECK: Supple. HEART: Showed normal first and second heart sounds with no gallop, rub, or murmur. CHEST: Clear to auscultation. No crepitation or rhonchi. Does have a dull percussion note and absent breath sounds in the right side posteriorly. ABDOMEN: Distended, soft, nontender. NEUROLOGIC: She is awake, alert, oriented to time, place and person. Cranial nerves intact. She moves extremities without difficulty. She ambulates without assistance or assistive devices. Her intake over the last 24 hours was 1260, no output was recorded. LABORATORY DATA: Her lab work this morning showed a white cell count of 3900, hemoglobin 10.6, hematocrit 31, MCV 90 and platelet count 203,000. Her chemistry showed a serum sodium 137, potassium 3.7, chloride 105, bicarbonate 24, anion gap of 8, BUN 3, creatinine 0.7, estimated GFR was 95 mL per minute. Her glucose was 89, calcium was 8.2. So far, the bronchoalveolar lavage culture and sensitivity did not grow any organisms. ASSESSMENT: Community-acquired pneumonia; fever; hypokalemia, resolving. PLAN: The plan is to continue with Zosyn and Zyvox. Continue with pain management. Continue with physical and occupational therapy. If the patient starts having hemoptysis, we probably have to arrange for her to do a Doppler ultrasound. I did encourage her to walk and I ordered physical and occupational therapy. I will repeat her BMP just to make sure that her potassium remains stable. AUGUST TONY MD DR: Angeline JOB#: [id number] / [id number]
[2016-05-12 03:00] VITALS: BP 108/68
[2016-05-12] MEDS: PIPERACILLIN/TAZOBACTAM 4.5 GM in IV NORMAL SALINE 100ML 100 ML IV SCH (05:43)
[2016-05-12] MEDS: methylPREDNISolone SOD SUCC PF 40 MG/ML VIAL. IV SCH (06:00)
[2016-05-12] MEDS: IPRATRPIUM/ALBUTEROL 0.5/2.5MG 3 ML NEBU. NEB SCH ×2 (06:53→10:52)
[2016-05-12 07:50] VITALS: BP 111/72
--- NOTE | 2016-05-12 08:10 | RAD ---
EXAM: Chest, single view. HISTORY: Pneumonia. COMPARISON: 05/09/2016. FINDINGS: A frontal view of the chest is obtained. There has been slight interval decrease in right lower lobe infiltrate with a small effusion. There is also a stable small left pleural effusion. The heart is normal in size. There is no pneumothorax. There is thoracolumbar fusion instrumentation. IMPRESSION: 1. Slight interval decrease in right lower lobe pneumonia with a small parapneumonic effusion. Follow-up to confirm complete resolution. 2. Stable small left pleural effusion.
[2016-05-12] MEDS: GUAIFENESIN ER 600 MG TABLET.ER PO SCH (08:52)
[2016-05-12] MEDS: POTASSIUM CHLORIDE 20 MEQ TABLET.ER. PO SCH (08:53)
[2016-05-12 10:35] VITALS: BP 103/66
--- NOTE | 2016-05-12 10:58 | PDOC ---
Infectious Disease Note Subjective Subjective feeling much better, ROS ROS GEN: Denies fevers, chills, sweats HEENT: Denies blurred vision, sore throat CV: Denies chest pain RESP: Denies shortness of air, cough GI: Denies n/v/d NEURO: Denies confusion, dizziness MSK: Denies weakness, joint pain/swelling Vital Sign Vital Signs Vital Signs Date Time Temp Pulse Resp B/P Pulse Ox O2 Delivery O2 Flow Rate FiO2 05/12/16 10:53 96 Room Air 05/12/16 10:35 99.0 84 18 103/66 99.0 Physical Exam PHYSICAL EXAM GENERAL: NAD, Alert HEENT: PERRL, OC/OP NECK: Supple, no JVD, no LN LUNGS: Clear HEART: S1S2, no gallop, no murmur ABD: Soft, NT, no organomegaly, no rebound EXT: No edema, no cyanosis ASBESTOS SHINGLE INSPECTOR: Alert, oriented x 3, no focal neurologic deficit SKIN: No rash IV: ok Labs Micro culture neg Objective Assessment Pneumonia Fever CAP Plan Plan of Care zosyn and zyvox,, change to po levaquin supportive care check cultures CARLOS NASH MD May 12, 2016 10:58
--- NOTE | 2016-05-12 11:07 | PDOC ---
PULMONARY PROGRESS NOTES Subjective FEELS BETTER improving low grade fever Vitals Vital Signs Date Time Temp Pulse Resp B/P Pulse Ox O2 Delivery O2 Flow Rate FiO2 05/12/16 10:53 96 Room Air 05/12/16 10:35 99.0 84 18 103/66 99.0 General: Alert, No acute distress Lungs: Other (decrease bs right base) Cardiovascular: S1 Abdomen: Soft Neuro Exam: Alert Extremities: No Edema Skin: Warm Labs Laboratory Tests Test 05/11/16 06:20 White Blood Count 3.9x10^3/uL (4.0-11.0) Red Blood Count 3.48x10^6/uL (3.50-5.40) Hemoglobin 10.6g/dL (12.0-15.5) Hematocrit 31.3% (36.0-47.0) Mean Corpuscular Volume 90fL (79-100) Mean Corpuscular Hemoglobin 31pg (25-35) Mean Corpuscular Hemoglobin Concent 34g/dL (31-37) Red Cell Distribution Width 13.3% (11.5-14.5) Platelet Count 203x10^3/uL (140-400) Sodium Level 137mmol/L (136-145) Potassium Level 3.7mmol/L (3.5-5.1) Chloride Level 105mmol/L (98-107) Carbon Dioxide Level 24mmol/L (21-32) Anion Gap 8 (6-14) Blood Urea Nitrogen 3mg/dL (7-20) Creatinine 0.7mg/dL (0.6-1.0) Estimated GFR (Cockcroft-Gault) 94.7 Glucose Level 89mg/dL (70-99) Calcium Level 8.3mg/dL (8.5-10.1) Medications Active Scripts Medications Dose Route/Sig Days Date Category Ibuprofen 400 Mg Tablet 400 Mg PO PRN Q6HRS PRN 05/09/16 Reported Comments CXR 05/12 Marked improvement in RLL consolidation when c/w ct chest Impression . 1. Community acquired extensive right lower lobe pneumonia, suspect BOOP 2. No significant empyema on ct chest 2. Abnormal chest x-ray and CT of the abdomen. Initially, consolidation was seen on CT abdomen on 06 of May, ct chest 05/09 with large consolidation , very tiny pleural effusion. 3. No significant history of tobacco use. 4. S/P Bronch 05/09, cultures negative so far Plan . 1. BS antibiotic per ID, can de-escalate in 24 hrs 2. f/u Bronch cultures so far negative 3. low grade fever/ ? BOOP related to pneumonia, steroids started 05/11 4. Improving CXR 05/12 5. No HIV risk factors. d/w ID, will check, may check immunoglobulin level as well 7. DuSadiab p.r.n. 8. could go home in 24 hr. f/u with me on May 26 at 2.30 pm with a cxr prior SILVIA DOBBINS MD May 12, 2016 11:07
[2016-05-12] MEDS ORDERED: LEVOFLOXACIN 500 MG TABLET PO SCH (11:30)
[2016-05-12] MEDS ORDERED: LEVO500T38 PO (12:13)
[2016-05-12] MEDS ORDERED: KETO10TA PO (14:03)
--- NOTE | 2016-05-12 22:11 | DS ---
DATE OF DISCHARGE: 05/12/2016 HISTORY OF PRESENT ILLNESS: The patient is a 35-year-old female patient who was originally admitted to [facility] with community-acquired pneumonia; however, she continued to spike her temperature and a suspicion of empyema or lung abscess was entertained and therefore, she was transferred to [facility]. She was seen in consultation by a karate instructor who is the infectious disease specialist. A repeat CT scan done showed that there is consolidated right lower lobe pneumonia with small parapneumonic effusion. There is small left side pleural effusion, ____ dependent and basilar atelectasis. She underwent bronchoscopy, no evidence of any bronchial obstruction and so far the sputum culture for acid fast bacilli was negative. The patient was initially treated with ceftriaxone and Zithromax. However, the infectious disease specialist switched her to Zosyn and Zyvox and throughout her stay here, she remained afebrile and hemodynamically stable. Her white cell count came down steadily and decision was made to switch her to oral Levaquin and she will be discharged to complete treatment as an outpatient and to follow with Dr. Mata on 05/26/2016 at 2:30 p.m. with a plan to have a chest x-ray, PA and lateral view prior to that. PHYSICAL EXAMINATION: GENERAL: When I examined her, she looked well and was clearly in no apparent respiratory distress. No pallor, jaundice, cyanosis, lymphadenopathy or thyromegaly. No jugular venous distention. No lower limb edema. VITAL SIGNS: Her heart rate was 84, blood pressure was 103/66, temperature was 99, respiratory rate was 18 and oxygen saturation was 96% on room air. HEAD, EYES, EARS, NOSE AND THROAT: Normocephalic, atraumatic. NECK: Supple. HEART: Showed normal first and second heart sounds. No gallop, rub or murmur. CHEST: Clear to auscultation. No crepitation or rhonchi. ABDOMEN: Distended, soft, nontender. No guarding or rigidity. No organomegaly. Hernial orifices intact. Bowel sounds normal. NEUROLOGIC: She is awake, alert, responding appropriately. Cranial nerves intact. She moves extremities without difficulty. She ambulates without assistance or assistive devices. Her intake over the last 24 hours was 2075. No output was recorded. LABORATORY DATA: Showed a serum sodium 137, potassium 3.7, chloride 105, bicarbonate 24, anion gap of 8, BUN 3, creatinine 0.7, estimated GFR was 94, glucose was 89, calcium was 8.3. Her white cell count was 3900, hemoglobin 11, hematocrit 31, MCV 90 and platelet count 103,000. DISCHARGE MEDICATIONS: The patient will be discharged on Levaquin 500 mg once a day for 7 days, ____ Toradol and Tylenol. 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 The patient has no evidence of any immunosuppression. She is not at high risk for HIV. AUGUST TONY MD DR: YOVANI/mary JOB#: [id number] / [id number]
== END 2016-05-12 14:30 | disposition home or self-care (01) | DRG 178 ==
LOC: 1 WEST ICU 20:49 → 5 NORTH 05-09 19:07
PROVIDERS: ADMIT Internal Medicine; ATTEND Internal Medicine
PROC: 0B968ZX Drainage of Right Lower Lobe Bronchus, Via Natural or Artificial Opening Endoscopic, Diagnostic (ICD-10-PCS; principal; 2016-05-09 14:00)
DX: J69.0 Pneumonitis due to inhalation of food and vomit (principal); J90 Pleural effusion, not elsewhere classified; J98.11 Atelectasis; J84.89 Other specified interstitial pulmonary diseases; E87.6 Hypokalemia; M41.9 Scoliosis, unspecified; Z90.49 Acquired absence of other specified parts of digestive tract; Z88.6 Allergy status to analgesic agent; Z88.8 Allergy status to other drugs, medicaments and biological substances
CPT/HCPCS: 31622; 36415; 71010; 71250; 80048; 80053; 85027; 85610; 85730; 87070; 87102; 87116; 87205; 87641; 88112; 94250; 94640; 94760; J0456; J0696; J1885; J2020; J2405; J2543; J2704; J2920; J3480; J7030; J7050; J7620; Q0163

== ENCOUNTER → 2016-05-25 | Outpatient (CLI) | payer OTHER ==
[2016-05-12 10:35] VITALS: BP 103/66
[~2016-05-25] MED LIST: IBUP-1027 PO; KETO10TA PO; LEVO500T38 PO
--- NOTE | 2016-05-25 15:55 | RAD ---
Chest, 2 views, 05/25/2016: History: Follow-up pneumonia Comparison is made to a study from 05/12/2016. The heart size and pulmonary vascularity is normal. Right basilar pneumonia has completely cleared. No pulmonary infiltrates are currently seen. There is no evidence of pleural fluid. Postsurgical changes are again noted in the spine with Patel rods in place. IMPRESSION: Interval clearing of the right basilar pneumonia.
== END | disposition home or self-care (01) ==
LOC: RAD 15:26
PROVIDERS: ATTEND Internal Medicine Critical Care Medicine
DX: J18.9 Pneumonia, unspecified organism (principal)
CPT/HCPCS: 71020